=== PATIENT | female | born 1990 | race Two or more races ===

== ENCOUNTER 2024-07-28 08:22 | Outpatient (CLI) | payer OTHER ==
[~2024-07-28 08:22] MED LIST: Colace 100MG PO; KETO10TA2 PO; Mylicon 125MG PO; OXYC1TAB9 PO
== END 2024-07-28 08:57 | disposition home or self-care (01) ==
LOC: SONOGRAMA 08:22
PROVIDERS: ATTEND Obstetrics & Gynecology Obstetrics
DX: R10.2 Pelvic and perineal pain (principal); N93.9 Abnormal uterine and vaginal bleeding, unspecified; N84.0 Polyp of corpus uteri

== ENCOUNTER 2024-09-14 10:18 | Outpatient (CLI) | payer OTHER | END 2024-09-14 10:25 | disposition home or self-care (01) | LOC: RAD 10:18 | DX: Z01.818 Encounter for other preprocedural examination (principal) ==